=== PATIENT | female | born 1980 | race Two or more races ===

== ENCOUNTER 2018-04-09 13:36 | Emergency (ER) | payer OTHER ==
[2018-04-09 13:42] VITALS: BP 105/73; PULSE 110; TEMP 102.2; BMI 32.3
[2018-04-09] MEDS ORDERED: ACETAMINOPHEN 500 MG TABLET (FP) PO ONE (14:27)
--- NOTE | 2018-04-09 14:28 | PDOC ---
History of Present Illness - General Chief Complaint: Cold Symptoms Stated Complaint: BODYACHES, FEVER Time Seen by Provider: 04/09/18 14:20 - History of Present Illness Initial Comments: 04/09/18 14:27 38-year-old female without comorbidities presents for evaluation of fever body aches and general malaise and cough times one day Past History - Past Medical History Allergies/Adverse Reactions: Allergies Allergy/AdvReac Type Severity Reaction Status Date / Time No Known Allergies Allergy Verified 04/09/18 13:38 Home Medications: Ambulatory Orders Oseltamivir Phosphate [Tamiflu -] 75 mg PO BID #10 capsule 04/09/18 Asthma: No Cancer: No Cardiac Disorders: No COPD: No DVT: No Diabetes: No HTN: No Seizures: No Thyroid Disease: No - Suicide/Smoking/Psychosocial Hx Smoking History: Never smoked Have you smoked in the past 12 months: No Information on smoking cessation initiated: No Hx Alcohol Use: No Drug/Substance Use Hx: No Substance Use Type: None Hx Substance Use Treatment: No Review of Systems - Review of Systems Constitutional: Yes: Chills, Diaphoresis, Fever, Malaise, Night Sweats Respiratory: Yes: Cough *Physical Exam - Vital Signs Last Vital Signs Temp Pulse Resp BP Pulse Ox 102.2 F H 110 H 16 105/73 100 04/09/18 13:40 04/09/18 13:40 04/09/18 13:40 04/09/18 13:40 04/09/18 13:40 - Physical Exam Comments: 04/09/18 14:28 HEAD: NC/AT EYES: Conjuntiva clear Ears: Canals and TM's normal NOSE: No d/c THROAT: Moist mucous membrances, oral pharanx clear, uvula midline NECK: Supple without adenopathy CARDIAC: S1 S2 LUNGS: CTA Full and Equal breath sounds ABDOMEN: Soft NT ND MS: Full ROM in all joints without edema NEUROLOGIC: No gross sensory or motor deficits, NVID SKIN: Normal color and temperature no lesions or rashes Moderate Sedation - Procedure Monitoring Vital Signs: Procedure Monitoring Vital Signs Temperature 102.2 F H 04/09/18 13:40 Pulse Rate 110 H 04/09/18 13:40 Respiratory Rate 16 04/09/18 13:40 Blood Pressure 105/73 04/09/18 13:40 O2 Sat by Pulse Oximetry (%) 100 04/09/18 13:40 *DC/Admit/Observation/Transfer Diagnosis at time of Disposition: Influenza A - Discharge Dispostion Disposition: HOME Condition at time of disposition: Stable Decision to Admit order: No - Prescriptions Prescriptions: Oseltamivir Phosphate [Tamiflu -] 75 mg PO BID #10 capsule - Referrals Referrals: Irena Becerra [Primary Care Provider] - - Patient Instructions Printed Discharge Instructions: Influenza Additional Instructions: Return to the emergency room should symptoms worsen or go unresolved. He may take Tylenol and Motrin as directed for fever and body aches. Follow-up with your primary care physician in 2-3 days for further evaluation and treatment options. And take the anti-flu medication as directed. Please drink plenty of fluids - Post Discharge Activity
[2018-04-09] MEDS ORDERED: ACETAMINOPHEN 500 MG TABLET (FP) ONE (14:31)
== END 2018-04-09 15:08 | disposition home or self-care (01) ==
LOC: JERFT 13:36
DX: J09.X2 Influenza due to identified novel influenza A virus with other respiratory manifestations (principal)
CPT/HCPCS: 87804; 99281-25

== ENCOUNTER 2018-10-23 09:21 | Emergency (ER) | payer OTHER ==
[2018-10-23 09:35] VITALS: BP 103/57; PULSE 89; TEMP 98.5; BMI 30.4
[2018-10-23 10:03] LABS: HCG,QUALITATIVE URINE Negative
--- NOTE | 2018-10-23 10:10 | PDOC ---
History of Present Illness - General Chief Complaint: Urinary Problem Stated Complaint: URINARY PROBLEM Time Seen by Provider: 10/23/18 09:41 History Source: Patient Exam Limitations: Clinical Condition - History of Present Illness Initial Comments: 10/23/18 10:08 Patient with no significant past medical history present with complaint of five- day history of urinary frequency, burning with urination and urinary urgency. Denies fever, chills, nausea or vomiting. Denies abdominal pain or back pains. Denies any other symptoms Timing/Duration: other (5 days) Past History - Past Medical History Allergies/Adverse Reactions: Allergies Allergy/AdvReac Type Severity Reaction Status Date / Time No Known Allergies Allergy Verified 10/23/18 09:35 Home Medications: Ambulatory Orders Nitrofurantoin Monohyd/M-Cryst [Macrobid -] 100 mg PO BID #14 capsule 10/23/18 Phenazopyridine HCl [Pyridium] 100 mg PO TID 2 Days #6 tablet 10/23/18 Asthma: No Cancer: No Cardiac Disorders: No COPD: No DVT: No Diabetes: No HTN: No Seizures: No Thyroid Disease: No - Suicide/Smoking/Psychosocial Hx Smoking History: Never smoked Have you smoked in the past 12 months: No Information on smoking cessation initiated: No Hx Alcohol Use: No Drug/Substance Use Hx: No Substance Use Type: None Hx Substance Use Treatment: No Review of Systems - Review of Systems Able to Perform ROS?: Yes Is the patient limited [place]ish proficient: No Constitutional: No: Chills, Fever HEENTM: No: Symptoms Reported Respiratory: No: Symptoms reported Cardiac (ROS): No: Symptoms Reported ABD/GI: No: Symptoms Reported, Nausea, Vomiting : Yes: Symptoms Reported, See HPI, Burning, Dysuria, Frequency, Urgency. No: Discharge, Flank Pain, Hematuria, Incontinence Musculoskeletal: No: Symptoms Reported, Back Pain All Other Systems: Reviewed and Negative *Physical Exam - Vital Signs Last Vital Signs Temp Pulse Resp BP Pulse Ox 98.5 F 89 18 103/57 L 100 10/23/18 09:34 10/23/18 09:34 10/23/18 09:34 10/23/18 09:34 10/23/18 09:34 - Physical Exam General Appearance: Yes: Nourished, Appropriately Dressed. No: Apparent Distress HEENT: positive: Normal ENT Inspection Neck: positive: Supple Respiratory/Chest: positive: Lungs Clear, Normal Breath Sounds. negative: Respiratory Distress, Accessory Muscle Use Cardiovascular: positive: Regular Rhythm, Regular Rate Musculoskeletal: positive: Normal Inspection Extremity: positive: Normal Inspection Integumentary: positive: Normal Color Neurologic: positive: Fully Oriented, Alert, Normal Mood/Affect, Normal Response ED Treatment Course - ADDITIONAL ORDERS Additional order review: Laboratory Results 10/23/18 09:40 Urine HCG, Qual Negative Medical Decision Making - Medical Decision Making 10/23/18 10:09 Patient with no significant past medical history present with complaint of five- day history of urinary symptoms without fevers or vomiting. Clinical exam unremarkable with no acute distress with fever. UA, urine culture and urine hCG labs ordered. Treat based on imaging results 10/23/18 10:58 UA shows leukocytosis with WBCs. Patient will be discharged on macrobid x 7 days pending Ucx results *DC/Admit/Observation/Transfer Diagnosis at time of Disposition: UTI (urinary tract infection) Qualifiers: Urinary tract infection type: acute cystitis Hematuria presence: without hematuria Qualified Code(s): N30.00 - Acute cystitis without hematuria - Discharge Dispostion Disposition: HOME Condition at time of disposition: Stable Decision to Admit order: No - Prescriptions Prescriptions: Nitrofurantoin Monohyd/M-Cryst [Macrobid -] 100 mg PO BID #14 capsule Phenazopyridine HCl [Pyridium] 100 mg PO TID 2 Days #6 tablet - Referrals Referrals: Irena Becerra [Primary Care Provider] - - Patient Instructions Printed Discharge Instructions: DI for Urinary Tract Infection (UTI) Additional Instructions: Your urine shows bacteria. Take medications as prescribed. Increase fluid intake. Follow-up with primary care as needed. You'll be contacted with urine culture results if change of antibiotics is needed - Post Discharge Activity
[2018-10-23 10:33] LABS: EPI CELLS 4.6 /HPF (0-5/HPF); HYALINE CASTS 2 /lpf (0-8); PH,URINE 5.5 (5.0-8.0); URINE APPEARANCE CLEAR; URINE BACTERIA 709.1 /hpf (NEGATIVE); URINE BILIRUBIN NEGATIVE (NEGATIVE); URINE COLOR YELLOW; URINE GLUCOSE (UA) NEGATIVE (NEGATIVE); URINE KETONE NEGATIVE (NEGATIVE); URINE LEUK ESTERASE TRACE (NEGATIVE); URINE NITRITE NEGATIVE (NEGATIVE); URINE PROTEIN NEGATIVE (NEGATIVE); URINE RBC 11 /hpf (0-4); URINE UROBILINOGEN 0.2 mg/dL (0.2-1.0); URINE WBC 12 /hpf (0-5)
== END 2018-10-23 11:04 | disposition home or self-care (01) ==
LOC: JERFT 09:21
DX: N30.00 Acute cystitis without hematuria (principal)
CPT/HCPCS: 81003; 84703; 87086; 87186; 99281-25

== ENCOUNTER 2019-03-16 15:27 | Emergency (ER) | payer OTHER ==
[2019-03-16 15:39] VITALS: BP 127/50; PULSE 94; TEMP 98.3; BMI 31.4
[2019-03-16 16:17] LABS: EPI CELLS 3.7 /HPF (0-5/HPF); HYALINE CASTS 16 /lpf (0-8); PH,URINE 5.5 (5.0-8.0); URINE APPEARANCE TURBID; URINE BACTERIA 119.6 /hpf (NEGATIVE); URINE BILIRUBIN NEGATIVE (NEGATIVE); URINE COLOR YELLOW; URINE GLUCOSE (UA) NEGATIVE (NEGATIVE); URINE KETONE TRACE (NEGATIVE); URINE LEUK ESTERASE 2+ (NEGATIVE); URINE NITRITE NEGATIVE (NEGATIVE); URINE PROTEIN 2+ (NEGATIVE); URINE WBC 2372 /hpf (0-5)
--- NOTE | 2019-03-16 16:28 | PDOC ---
History of Present Illness - General Chief Complaint: Urinary Problem Stated Complaint: R/O UTI Time Seen by Provider: 03/16/19 15:40 History Source: Patient - History of Present Illness Timing/Duration: reports: constant Past History - Past Medical History Allergies/Adverse Reactions: Allergies Allergy/AdvReac Type Severity Reaction Status Date / Time No Known Allergies Allergy Verified 03/16/19 15:39 Home Medications: Ambulatory Orders Nitrofurantoin Monohyd/M-Cryst [Macrobid -] 100 mg PO BID #14 capsule 10/23/18 Phenazopyridine HCl [Pyridium] 100 mg PO TID 2 Days #6 tablet 10/23/18 Nitrofurantoin Monohyd/M-Cryst [Macrobid -] 100 mg PO BID #14 capsule 03/16/19 Asthma: No Cancer: No Cardiac Disorders: No COPD: No DVT: No Diabetes: No HTN: No Seizures: No Thyroid Disease: No - Psycho Social/Smoking Cessation Hx Smoking History: Never smoked Have you smoked in the past 12 months: No Hx Alcohol Use: No Drug/Substance Use Hx: No Substance Use Type: None Hx Substance Use Treatment: No Review of Systems - Review of Systems Constitutional: No: Chills, Fever ABD/GI: No: Nausea, Vomiting, Abdominal cramping : Yes: Dysuria. No: Discharge, Flank Pain, Hematuria *Physical Exam - Vital Signs Last Vital Signs Temp Pulse Resp BP Pulse Ox 98.3 F 94 H 18 127/50 L 99 03/16/19 15:37 03/16/19 15:37 03/16/19 15:37 03/16/19 15:37 03/16/19 15:37 - Physical Exam General Appearance: Yes: Appropriately Dressed. No: Apparent Distress HEENT: positive: Normal Voice Neck: positive: Supple Respiratory/Chest: negative: Respiratory Distress Gastrointestinal/Abdominal: positive: Soft. negative: Tender Musculoskeletal: negative: CVA Tenderness Integumentary: positive: Dry, Warm Neurologic: positive: Fully Oriented, Alert, Normal Mood/Affect ED Treatment Course - ADDITIONAL ORDERS Additional order review: Laboratory Results 03/16/19 15:50 Urine Color Yellow Urine Appearance Turbid Urine pH 5.5 Ur Specific [place] 1.031 Urine Protein 2+ H Urine Glucose (UA) Negative Urine Ketones Trace H Urine Blood 3+ H Urine Nitrite Negative Urine Bilirubin Negative Urine Urobilinogen 1.0 Ur Leukocyte Esterase 2+ H Urine WBC (Auto) 2372 Urine Casts (Auto) 16 U Epithel Cells (Auto) 3.7 Urine Bacteria (Auto) 119.6 Medical Decision Making - Medical Decision Making 03/16/19 18:31 89-year-old female history of recurrent UTIs, here with dysuria since last night , consistent with her prior UTIs. No flank pain nausea vomiting fever or chills see exam UTI No h/o pyelo +LE, >2k LE and >100bac Dc w/ macrobid based on prior sen Discharge - Discharge Information Problems reviewed: Yes Clinical Impression/Diagnosis: UTI (urinary tract infection) Qualifiers: Urinary tract infection type: site unspecified Hematuria presence: without hematuria Qualified Code(s): N39.0 - Urinary tract infection, site not specified Condition: Good Disposition: HOME - Additional Discharge Information Prescriptions: Nitrofurantoin Monohyd/M-Cryst [Macrobid -] 100 mg PO BID #14 capsule - Follow up/Referral Referrals: Irena Becerra [Primary Care Provider] - - Patient Discharge Instructions Patient Printed Discharge Instructions: DI for Urinary Tract Infection (UTI) Additional Instructions: Take antibiotic as prescribed and return as needed - Post Discharge Activity
[2019-03-16 16:44] LABS: URINE RBC 107.9 /hpf (0-4)
[2019-03-16 16:45] LABS: YEAST OCCASIONAL (NEGATIVE)
== END 2019-03-16 16:57 | disposition home or self-care (01) ==
LOC: JERFT 15:27
DX: N39.0 Urinary tract infection, site not specified (principal); Z87.440 Personal history of urinary (tract) infections
CPT/HCPCS: 81003; 84703; 87086; 87186; 99282-25

== ENCOUNTER 2019-05-15 10:26 | Emergency (ER) | payer OTHER ==
[2019-05-15 10:47] VITALS: BP 117/61; PULSE 90; TEMP 98.2; BMI 30.9
--- NOTE | 2019-05-15 12:43 | PDOC ---
History of Present Illness - General Chief Complaint: Sore Throat Stated Complaint: SORE THROAT/FEVER Time Seen by Provider: 05/15/19 11:28 - History of Present Illness Initial Comments: 05/15/19 12:41 39-year-old female without comorbidities presents for evaluation of sore throat x2 days with fever at home Past History - Past Medical History Allergies/Adverse Reactions: Allergies Allergy/AdvReac Type Severity Reaction Status Date / Time No Known Allergies Allergy Verified 03/16/19 15:39 Home Medications: Ambulatory Orders Nitrofurantoin Monohyd/M-Cryst [Macrobid -] 100 mg PO BID #14 capsule 10/23/18 Phenazopyridine HCl [Pyridium] 100 mg PO TID 2 Days #6 tablet 10/23/18 Nitrofurantoin Monohyd/M-Cryst [Macrobid -] 100 mg PO BID #14 capsule 03/16/19 Asthma: No Cancer: No Cardiac Disorders: No COPD: No DVT: No Diabetes: No HTN: No Seizures: No Thyroid Disease: No - Psycho Social/Smoking Cessation Hx Smoking History: Never smoked Have you smoked in the past 12 months: No Information on smoking cessation initiated: No Hx Alcohol Use: No Drug/Substance Use Hx: No Substance Use Type: None Hx Substance Use Treatment: No Review of Systems - Review of Systems Constitutional: Yes: Fever HEENTM: Yes: Throat Pain, Difficulty Swallowing *Physical Exam - Vital Signs Last Vital Signs Temp Pulse Resp BP Pulse Ox 98.2 F 90 16 117/61 100 05/15/19 10:41 05/15/19 10:41 05/15/19 10:41 05/15/19 10:41 05/15/19 10:41 - Physical Exam 05/15/19 12:42 GENERAL: The patient is awake, alert, and fully oriented, in no acute distress. HEAD: Normal with no signs of trauma. EYES: sclera anicteric, conjunctiva clear. ENT: Ears normal tympanic membranes normal oropharynx clear uvula midline NECK: Normal range of motion LUNGS: Breath sounds equal, clear to auscultation bilaterally. No wheezes, and no crackles. HEART: S1 and S2 without murmur, rub or gallop. ABDOMEN: Soft, nontender, normoactive bowel sounds. No guarding, no rebound. No masses. EXTREMITIES: Normal range of motion, no edema. No clubbing or cyanosis. No cords, erythema, or tenderness. NEUROLOGICAL: Cranial nerves II through XII grossly intact. PSYCH: Normal mood, normal affect. SKIN: Warm, Dry, normal turgor, no rashes or lesions noted. Medical Decision Making - Medical Decision Making 05/15/19 12:42 Unimpressive exam negative strep culture sent we will treat for viral pharyngitis Discharge - Discharge Information Problems reviewed: Yes Clinical Impression/Diagnosis: Viral pharyngitis Condition: Stable Disposition: HOME - Admission No - Follow up/Referral Referrals: Irena Becerra [Primary Care Provider] - - Patient Discharge Instructions Additional Instructions: Tylenol Motrin as directed for fever and pain. Return to the emergency room for worsening symptoms. Without fail follow-up with your primary care physician in 1 to 2 days for further evaluation and treatment Options. Warm salt water gargles will help with you with the pain - Post Discharge Activity
== END 2019-05-15 13:09 | disposition home or self-care (01) ==
LOC: JERFT 10:26
DX: J06.9 Acute upper respiratory infection, unspecified (principal); B97.89 Other viral agents as the cause of diseases classified elsewhere
CPT/HCPCS: 87070; 87880; 99281-25